=== PATIENT | female | born 1985 | race Hispanic/Latino ===

== ENCOUNTER 2020-01-30 22:21 | Emergency (ER) | payer OTHER | END 2020-01-30 22:56 | disposition home or self-care (01) | LOC: EDH 22:21 | DX: Z20.828 Contact with and (suspected) exposure to other viral communicable diseases (principal); R06.02 Shortness of breath; R07.89 Other chest pain; Z90.710 Acquired absence of both cervix and uterus | CPT/HCPCS: 99281 ==